=== PATIENT | female | born 1945 | race Caucasian/White ===

== ENCOUNTER 2021-02-22 16:57 | Emergency (ER) | payer MEDICARE, BC ==
[~2021-02-22] VITALS: Ht 160 cm; Wt 147.3 kg
[2021-02-22 16:59] VITALS: BP 122/61
[2021-02-22 19:46] LABS: BASOPHILS % (AUTO) 0.5 % (0-1); EOSINOPHILS # (AUTO) 0.2 X10'3 (0-0.9); EOSINOPHILS % (AUTO) 1.8 % (0-6); HEMOGLOBIN 12.1 g/dl (12.0-16.0); LYMPHOCYTES # (AUTO) 1.7 X10'3 (1.1-4.8); LYMPHOCYTES % (AUTO) 20.7 % (21-51); MEAN CORPUSCULAR HEMOGLOBIN 30.7 PG (27.0-31.0); MEAN CORPUSCULAR HGB CONC 32.7 g/dL (33.0-36.5); MEAN CORPUSCULAR VOLUME 93.8 FL (78-98); MEAN PLATELET VOLUME 9.6 FL (7.4-10.4); MONOCYTES # (AUTO) 0.6 X10'3 (0-0.9); NEUTROPHILS # (AUTO) 5.8 X10'3 (1.8-7.7); PLATELET COUNT 200 X10'3 (140-440); RED BLOOD COUNT 3.94 X10'6 (4.20-5.60); RED CELL DISTRIBUTION WIDTH 15.4 % (11.5-14.5); WHITE BLOOD COUNT 8.3 X10'3 (4.5-11.0)
[2021-02-22 19:58] LABS: PARTIAL THROMBOPLASTIN TIME 21 SECONDS (22-32)
[2021-02-22 20:07] LABS: ALANINE AMINOTRANSFERASE 17 U/L (12-78); ALBUMIN 3.1 G/DL (3.4-5.0); ALBUMIN/GLOBULIN RATIO 0.9 (1.1-1.5); ALKALINE PHOSPHATASE 91 IU/L (46-116); ANION GAP 8 (8-16); ASPARTATE AMINO TRANSFERASE 8 U/L (10-37); BILIRUBIN,TOTAL 0.3 MG/DL (0.1-1.0); BLOOD UREA NITROGEN 23 MG/DL (7-18); BUN/CREATININE RATIO 42.6 (6.6-38.0); CALCIUM 8.5 MG/DL (8.5-10.1); CHLORIDE 106 MMOL/L (99-107); CREATININE 0.54 MG/DL (0.40-0.90); GLUCOSE 128 MG/DL (70-104); POTASSIUM 4.2 MMOL/L (3.5-5.1); SODIUM 143 MMOL/L (135-145); TOTAL PROTEIN 6.7 G/DL (6.4-8.2); eGFR > 90 ML/MIN
[2021-02-22 20:13] LABS: MAGNESIUM 2.1 MG/DL (1.5-2.4)
[2021-02-22 20:23] LABS: CLARITY,URINE CLEAR (Clear); COLOR,URINE YELLOW (Yellow); GLUCOSE, URINE NEGATIVE (Neg); KETONES,URINE NEGATIVE (Neg); LEUKOCYTE ESTERASE ,URINE NEGATIVE (Neg); NITRITES, URINE NEGATIVE (Neg); OCCULT BLOOD,URINE NEGATIVE (Neg); PROTEIN,URINE NEGATIVE (Neg); UA COLLECTION TYPE VOIDED; UROBILINOGEN,URINE 0.2 E.U/dL (0.2-1.0)
== END 2021-02-22 21:11 | disposition home or self-care (01) ==
LOC: ER 16:58
DX: M79.18 Myalgia, other site (principal); R42 Dizziness and giddiness; R51.9 Headache, unspecified; R11.0 Nausea; R79.1 Abnormal coagulation profile; J45.909 Unspecified asthma, uncomplicated; E11.9 Type 2 diabetes mellitus without complications; Z88.5 Allergy status to narcotic agent
CPT/HCPCS: 36415; 71045; 80053; 81003; 83735; 83880; 84484; 85025; 85610; 85730; 99284

== ENCOUNTER → 2021-02-22 | Emergency (ER) | payer OTHER | END | disposition left against medical advice (07) | LOC: ER 14:54 | DX: Z53.21 Procedure and treatment not carried out due to patient leaving prior to being seen by health care provider (principal) | CPT/HCPCS: 93005 ==

== ENCOUNTER 2023-10-30 10:05 | Inpatient (IN) | payer MEDICARE, BC ==
[~2023-10-30] VITALS: Ht 165.1 cm; Wt 98.6 kg
[2023-10-30 11:35] LABS: BASOPHILS % (AUTO) 0.1 % (0-1); EOSINOPHILS % (AUTO) 0.1 % (0-6); HEMATOCRIT 37.2 % (35.0-45.0); HEMOGLOBIN 11.9 g/dl (12.0-16.0); LYMPHOCYTES # (AUTO) 1.3 X10'3 (1.1-4.8); LYMPHOCYTES % (AUTO) 8.1 % (21-51); MEAN CORPUSCULAR HEMOGLOBIN 29.7 PG (27.0-31.0); MEAN CORPUSCULAR VOLUME 92.9 FL (78-98); MEAN PLATELET VOLUME 9.7 FL (7.4-10.4); MONOCYTES # (AUTO) 1.6 X10'3 (0-0.9); MONOCYTES % (AUTO) 10.1 % (2-12); NEUTROPHILS % (AUTO) 81.6 % (42-75); PLATELET COUNT 231 X10'3 (140-440); RED CELL DISTRIBUTION WIDTH 14.5 % (11.5-14.5); WHITE BLOOD COUNT 15.9 X10'3 (4.5-11.0)
[2023-10-30 11:59] LABS: ALANINE AMINOTRANSFERASE 15 U/L (12-78); ALBUMIN 2.5 G/DL (3.4-5.0); ALBUMIN/GLOBULIN RATIO 0.6 (1.1-1.5); ALKALINE PHOSPHATASE 85 IU/L (46-116); ANION GAP 7 (8-16); ASPARTATE AMINO TRANSFERASE 17 U/L (10-37); BILIRUBIN,TOTAL 0.5 MG/DL (0.1-1.0); BLOOD UREA NITROGEN 18 MG/DL (7-18); BUN/CREATININE RATIO 26.5 (10.0-20.0); CALCIUM 8.5 MG/DL (8.5-10.1); CHLORIDE 104 MMOL/L (99-107); CREATININE 0.68 MG/DL (0.40-0.90); GLUCOSE 194 MG/DL (70-104); POTASSIUM 3.9 MMOL/L (3.5-5.1); PRO BRAIN NATRIURETIC PEPTIDE 740 PG/ML (0-450); SODIUM 139 MMOL/L (135-145); TOTAL CARBON DIOXIDE 28.3 MMOL/L (24-32); TOTAL PROTEIN 6.6 G/DL (6.4-8.2); eCRCL 60 ML/MIN; eGFR 83 ML/MIN
[2023-10-30 12:09] LABS: BILIRUBIN,URINE NEGATIVE (Neg); CLARITY,URINE SLIGHTLY CLOUDY (Clear); COLOR,URINE YELLOW (Yellow); GLUCOSE, URINE NEGATIVE (Neg); KETONES,URINE NEGATIVE (Neg); LEUKOCYTE ESTERASE ,URINE NEGATIVE (Neg); NITRITES, URINE NEGATIVE (Neg); OCCULT BLOOD,URINE NEGATIVE (Neg); PH,URINE 5.5 (4.8-8.0); PROTEIN,URINE NEGATIVE (Neg); UROBILINOGEN,URINE 0.2 E.U/dL (0.2-1.0)
[2023-10-30 12:11] LABS: UA COLLECTION TYPE STRAIGHT CATH
[2023-10-30 12:15] LABS: SQUAMOUS EPITHELIAL CELL,UR FEW /LPF (FEW)
[2023-10-30 12:42] LABS: MUCUS STRANDS FEW /LPF (Neg); RBC,URINE 0-2 /HPF (0-2); WBC,URINE 0-4 /HPF (0-4)
[2023-10-30 12:45] LABS: BACTERIA,URINE FEW /HPF (Neg)
[2023-10-30] MEDS ORDERED: sincalide inj 2 MCG in normal saline 100ml IV soln 98 ML IV ONE (14:25)
[2023-10-30] MEDS ORDERED: potassium Cl 20 mEq SR tablet PO PRN ×2 (17:20)
[2023-10-30] MEDS ORDERED: mag hydrox/Alum hydrox/simeth 30ml oral suspension PO PRN (17:20)
[2023-10-30] MEDS ORDERED: magnesium 4gm in 100ml NS 100 ML IV PRN (17:20)
[2023-10-30] MEDS ORDERED: magnesium Cl slow-release 64mg tablet PO PRN (17:20)
[2023-10-30] MEDS ORDERED: ondansetron/PF 4mg/2ml inj IV PRN (17:20)
[2023-10-30] MEDS ORDERED: magnesium hydroxide 30ml (MOM) UD suspension PO PRN (17:20)
[2023-10-30] MEDS ORDERED: acetaminophen 325mg tablet PO PRN (17:20)
[2023-10-30] MEDS ORDERED: magnesium 2GM in 50ml NS 50 ML IV PRN (17:20)
[2023-10-30] MEDS ORDERED: potassium Cl 40MEQ/1/2NS 520ml 520 ML IV PRN (17:20)
[2023-10-30] MEDS ORDERED: ipratropium/albuterol 3ml nebule NEB PRN (17:25)
[2023-10-30] MEDS ORDERED: methylPREDNISolone sod succ 125mg/2ml vial IV ONE (17:25)
[2023-10-30] MEDS ORDERED: glucagon, human recombinant 1mg kit SUBCUT PRN (17:35)
[2023-10-30] MEDS ORDERED: DEXTROSE 15 GM of carb/4 tabs (each vial/BOTTLE has 4 tablets) PO PRN ×2 (17:35)
[2023-10-30] MEDS ORDERED: dextrose 50%-water 50ml dispensing syringe IV PRN ×2 (17:35)
[2023-10-30] MEDS ORDERED: CARV12.545 PO (17:38)
[2023-10-30] MEDS ORDERED: DYN250C TOP (17:38)
[2023-10-30] MEDS ORDERED: BENZ-111 (17:38)
[2023-10-30] MEDS ORDERED: ATOR40TA72 PO (17:38)
[2023-10-30] MEDS ORDERED: IBUP-1985 PO (17:45)
[2023-10-30] MEDS ORDERED: FURO40TA4 PO (17:45)
[2023-10-30] MEDS ORDERED: HYDR-3686 PO (17:45)
[2023-10-30] MEDS ORDERED: LANTUS SQ (17:45)
[2023-10-30] MEDS ORDERED: ONDA8TAB13 PO (17:50)
[2023-10-30] MEDS ORDERED: METF-438 PO (17:50)
[2023-10-30] MEDS ORDERED: SERT-433 PO (17:50)
[2023-10-30] MEDS ORDERED: MONT-40 PO (17:50)
[2023-10-30] MEDS ORDERED: LOPE2CAP PO (17:50)
[2023-10-30] MEDS ORDERED: MIRA25TA PO (17:50)
[2023-10-30] MEDS ORDERED: NYST60PO2 (17:50)
[2023-10-30] MEDS ORDERED: TRAM50TA2 PO (17:51)
[2023-10-30] MEDS ORDERED: albuterol 2.5 MG/3 ML nebule NEB PRN (18:00)
[2023-10-30 18:02] LABS: HEMOGLOBIN A1C 6.4 % (4.5-6.2)
[2023-10-30] MEDS: normal saline 1000ml 1,000 ML IV SCH (18:17)
[2023-10-30 19:08] VITALS: PULSE 83; RESP 20; O2SAT 98
[2023-10-30] MEDS: K and/or MAG REPLACEMENT MC SCH (19:40)
[2023-10-30] MEDS: docusate sod 100mg capsule PO SCH (20:00)
[2023-10-30] MEDS: methylPREDNISolone sod succ 125mg/2ml vial IV SCH (20:00)
[2023-10-30] MEDS: insulin glargine (Lantus) pen - multi-dose SQ SCH (23:40)
[2023-10-30] MEDS: enoxaparin 40mg/0.4ml syringe SUBCUT SCH (23:43)
[2023-10-31] VITALS (7 sets, daily range): BP systolic 108–155; BP diastolic 59–68; PULSE 63–75; RESP 18–20; TEMP 97.3–98.1; O2SAT 94–97
[2023-10-31] MEDS: piperacillin/tazo 3.375gm/50ml 50 ML IV SCH ×3 (00:02→15:57)
[2023-10-31 03:06] LABS: BASOPHILS % (AUTO) 0.3 % (0-1); EOSINOPHILS % (AUTO) 0 % (0-6); HEMATOCRIT 36.3 % (35.0-45.0); HEMOGLOBIN 11.8 g/dl (12.0-16.0); LYMPHOCYTES # (AUTO) 0.6 X10'3 (1.1-4.8); LYMPHOCYTES % (AUTO) 4.7 % (21-51); MEAN CORPUSCULAR HEMOGLOBIN 30.2 PG (27.0-31.0); MEAN CORPUSCULAR HGB CONC 32.5 g/dL (33.0-36.5); MEAN CORPUSCULAR VOLUME 92.8 FL (78-98); MEAN PLATELET VOLUME 9.3 FL (7.4-10.4); MONOCYTES # (AUTO) 0.3 X10'3 (0-0.9); MONOCYTES % (AUTO) 2.2 % (2-12); NEUTROPHILS # (AUTO) 12.4 X10'3 (1.8-7.7); NEUTROPHILS % (AUTO) 92.8 % (42-75); PLATELET COUNT 224 X10'3 (140-440); RED BLOOD COUNT 3.91 X10'6 (4.20-5.60); RED CELL DISTRIBUTION WIDTH 14.7 % (11.5-14.5); WHITE BLOOD COUNT 13.4 X10'3 (4.5-11.0)
[2023-10-31 04:03] LABS: ALBUMIN 2.5 G/DL (3.4-5.0); ANION GAP 7 (8-16); BLOOD UREA NITROGEN 20 MG/DL (7-18); BUN/CREATININE RATIO 27.4 (10.0-20.0); CHLORIDE 104 MMOL/L (99-107); CREATININE 0.73 MG/DL (0.40-0.90); GLUCOSE 253 MG/DL (70-104); MAGNESIUM 2.1 MG/DL (1.5-2.4); PHOSPHORUS 2.9 MG/DL (2.3-4.5); POTASSIUM 4.2 MMOL/L (3.5-5.1); SODIUM 138 MMOL/L (135-145); TOTAL CARBON DIOXIDE 27.4 MMOL/L (24-32); eCRCL 56 ML/MIN; eGFR 77 ML/MIN
[2023-10-31] MEDS: enoxaparin 40mg/0.4ml syringe SUBCUT SCH (06:59)
[2023-10-31] MEDS: K and/or MAG REPLACEMENT MC SCH ×2 (06:59→20:00)
[2023-10-31] MEDS: normal saline 1000ml 1,000 ML IV SCH (07:25)
[2023-10-31] MEDS: insulin Lispro (HumaLOG) vial - multi-dose SQ SCH ×4 (07:59→20:46)
[2023-10-31] MEDS: methylPREDNISolone sod succ 125mg/2ml vial IV SCH ×2 (07:59→20:28)
[2023-10-31] MEDS: docusate sod 100mg capsule PO SCH ×2 (08:00→20:28)
[2023-10-31] MEDS: azithromycin/NS 500mg/250ml 250 ML IV SCH (08:10)
[2023-10-31] MEDS ORDERED: levalbuterol 0.63mg/3ml nebule IH PRN (14:55)
[2023-10-31] MEDS: insulin glargine (Lantus) pen - multi-dose SQ SCH (20:46)
[2023-11-01] MEDS: piperacillin/tazo 3.375gm/50ml 50 ML IV SCH ×2 (00:16→08:58)
[2023-11-01 03:15] VITALS: PULSE 65; RESP 18; O2SAT 95
[2023-11-01 05:29] LABS: BASOPHILS # (AUTO) 0.1 X10'3 (0-0.2); BASOPHILS % (AUTO) 0.3 % (0-1); EOSINOPHILS % (AUTO) 0 % (0-6); HEMATOCRIT 35.2 % (35.0-45.0); HEMOGLOBIN 11.3 g/dl (12.0-16.0); LYMPHOCYTES # (AUTO) 0.9 X10'3 (1.1-4.8); LYMPHOCYTES % (AUTO) 5.5 % (21-51); MEAN CORPUSCULAR HEMOGLOBIN 29.7 PG (27.0-31.0); MEAN CORPUSCULAR HGB CONC 32.2 g/dL (33.0-36.5); MEAN CORPUSCULAR VOLUME 92.5 FL (78-98); MEAN PLATELET VOLUME 9.9 FL (7.4-10.4); MONOCYTES # (AUTO) 0.8 X10'3 (0-0.9); NEUTROPHILS # (AUTO) 14.8 X10'3 (1.8-7.7); NEUTROPHILS % (AUTO) 89.2 % (42-75); PLATELET COUNT 242 X10'3 (140-440); RED BLOOD COUNT 3.81 X10'6 (4.20-5.60); RED CELL DISTRIBUTION WIDTH 14.7 % (11.5-14.5); WHITE BLOOD COUNT 16.6 X10'3 (4.5-11.0)
[2023-11-01 05:38] LABS: ALBUMIN 2.1 G/DL (3.4-5.0); ANION GAP 5 (8-16); BLOOD UREA NITROGEN 24 MG/DL (7-18); BUN/CREATININE RATIO 38.7 (10.0-20.0); CALCIUM 8.9 MG/DL (8.5-10.1); CHLORIDE 105 MMOL/L (99-107); CREATININE 0.62 MG/DL (0.40-0.90); GLUCOSE 257 MG/DL (70-104); MAGNESIUM 2.2 MG/DL (1.5-2.4); PHOSPHORUS 2.4 MG/DL (2.3-4.5); POTASSIUM 4.4 MMOL/L (3.5-5.1); SODIUM 137 MMOL/L (135-145); TOTAL CARBON DIOXIDE 27.4 MMOL/L (24-32); eCRCL 66 ML/MIN; eGFR > 90 ML/MIN
[2023-11-01 06:00] VITALS: BP 129/54; PULSE 60; RESP 22; TEMP 96.2; O2SAT 96
[2023-11-01] MEDS: K and/or MAG REPLACEMENT MC SCH (08:00)
[2023-11-01 08:10] VITALS: PULSE 64; RESP 18; O2SAT 95
[2023-11-01] MEDS: azithromycin/NS 500mg/250ml 250 ML IV SCH (08:53)
[2023-11-01] MEDS: docusate sod 100mg capsule PO SCH (08:58)
[2023-11-01] MEDS: methylPREDNISolone sod succ 125mg/2ml vial IV SCH (08:58)
[2023-11-01] MEDS: enoxaparin 40mg/0.4ml syringe SUBCUT SCH (09:06)
[2023-11-01] MEDS: insulin Lispro (HumaLOG) vial - multi-dose SQ SCH (09:13)
[2023-11-01 10:00] VITALS: BP 125/53; PULSE 65; RESP 20; TEMP 98; O2SAT 97
[2023-11-01] MEDS ORDERED: montelukast 10mg tablet PO SCH (13:10)
[2023-11-01] MEDS ORDERED: sertraline 50mg tablet PO SCH (13:10)
[2023-11-01] MEDS ORDERED: hydrOXYzine 25 MG tablet PO PRN (13:10)
[2023-11-01] MEDS ORDERED: mirabegron 25mg ER tablet PO SCH (13:10)
[2023-11-01] MEDS ORDERED: ALBU8HFA INH (14:44)
[2023-11-01] MEDS ORDERED: LACT1CAP60 PO (14:44)
[2023-11-01] MEDS ORDERED: CEFD300C3 PO (14:44)
[2023-11-01] MEDS ORDERED: AZIT500T PO (14:44)
[2023-11-01] MEDS ORDERED: PRED10TA23 PO (14:44)
[2023-11-01] MEDS ORDERED: BUDE10.2 INH (14:44)
[2023-11-01] MEDS ORDERED: carVEDilol 12.5mg tablet PO SCH (20:00)
[2023-11-02] MEDS ORDERED: atorvastatin 20mg tablet PO SCH (08:00)
[2023-11-02] MEDS ORDERED: furosemide 40mg tablet PO SCH (08:00)
== END 2023-11-01 16:01 | disposition home or self-care (01) | DRG 193 ==
LOC: ER 10:05 → ED HOLD 17:23 → EDBEDREQ 10-31 01:33 → ORTHO 4S 10-31 07:00
PROVIDERS: ADMIT Family Medicine; ATTEND Family Medicine
PROC: CF1 Nuclear Medicine, Hepatobiliary System and Pancreas, Planar Nuclear Medicine Imaging (ICD-10-PCS; principal; 2023-10-30)
DX: J18.9 Pneumonia, unspecified organism (principal); J96.01 Acute respiratory failure with hypoxia; J44.1 Chronic obstructive pulmonary disease with (acute) exacerbation; J44.0 Chronic obstructive pulmonary disease with (acute) lower respiratory infection; G89.29 Other chronic pain; M54.9 Dorsalgia, unspecified; E11.9 Type 2 diabetes mellitus without complications; D72.829 Elevated white blood cell count, unspecified; K80.20 Calculus of gallbladder without cholecystitis without obstruction; I10 Essential (primary) hypertension; K57.90 Diverticulosis of intestine, part unspecified, without perforation or abscess without bleeding; Z88.5 Allergy status to narcotic agent
CPT/HCPCS: 36415; 71045; 74176; 76700; 78227; 80048; 80053; 81001; 82948; 83036; 83605; 83735; 83880; 84100; 84145; 84484; 85025; 87040; 87081; 93005; 93306; 94760; 96365; 99285; A9537; C1758; G0378; J0456; J1650; J1815; J2543; J2805; J2930; J3490; J7030; J7040